=== PATIENT | female | born 1950 | race Caucasian/White ===

== ENCOUNTER 2016-04-14 10:19 | Observation (INO) | payer OTHER, MEDICAID ==
--- NOTE | 2016-04-14 10:21 | EDPHY ---
H & P Time Seen by Provider: 04/14/16 10:19 HPI/ROS: CHIEF COMPLAINT: Found down HISTORY OF PRESENT ILLNESS: The patient is a 66 year old woman, arriving by EMS as a limited trauma plus activation, presenting after being found down in a snow bank. The patient was found at 0900 by a audio visual technician in a snow bank. When found, she was only oriented to name. She was appropriately dressed. While en route with EMS, she became more oriented, now GCS 15 by EMS report. The patient states she was walking her dogs this morning, left the house at approximately 0815. She denies chest pain, difficulty breathing, or headache this morning prior to leaving the house. EMS notes an abrasion above the left eye brow and controlled bleeding from the mouth on their arrival. The patient complains of headache, neck pain, and nausea on the arrival to the ED. She denies chest pain, shortness of breath, back pain, or abdominal pain. She appears to be incontinent of urine. The patient has no history of seizure. She states she drinks alcohol regularly, but not daily. She did not drink any alcohol today. She reports feeling dizzy before the event. She reports feeling dizzy while in the emergency department. REVIEW OF SYSTEMS: Aside from elements discussed in the HPI, a comprehensive 10-point review of systems was reviewed and is negative. PAST MEDICAL HISTORY: Denies SOCIAL HISTORY: Drinks alcohol on a regular basis but not daily. She denies drinking alcohol today or last night.. VITAL SIGNS: Reviewed by me; see NN. GENERAL: Pleasant, elderly female. Well-developed, well-nourished, in no acute distress. HEENT: Head: Atraumatic, normocephalic. Face: Abrasion over the left eye, left cheek, and the end of her nose. PERRL, EOMI, no nystagmus. Oropharynx: Normal occlusion. Bite travis on the right side of tongue. Dried blood around the lips Neck: Midline cervical tenderness over C7, immobilized in cervical collar. CHEST: Nontender, no subcutaneous air palpable. LUNGS: Clear to auscultation bilaterally, breath sounds are equal. CARDIAC: Regular rate and rhythm, no rubs, murmurs or gallops. ABDOMEN: Soft, nontender, nondistended, bowel sounds normal. BACK: No CVA tenderness, no spinal tenderness. : Appears incontinent of urine. EXTREMITIES: No trauma noted, normal range of motion. PULSES: 2+ and equal throughout. NEURO: Alert and oriented x3, cranial nerves are intact throughout, normal motor , normal sensation. SKIN: Warm and dry, no rash. Portions of this note were transcribed by a certified medical technician assistant. I personally performed a history, physical exam, medical decision making, and confirmed accuracy of information the transcribed note. Source: Patient, EMS Exam Limitations: No limitations Constitutional: Initial Vital Signs Temperature (C) 36.6 C 04/14/16 10:34 Heart Rate 76 04/14/16 10:34 Respiratory Rate 18 04/14/16 10:34 Blood Pressure 136/74 H 04/14/16 10:34 O2 Sat (%) 97 04/14/16 10:34 O2 Delivery Mode Room Air Allergies/Adverse Reactions: No Known Allergies Allergy (Unverified 04/14/16 10:34) Home Medications: Medication Instructions Recorded Acetaminophen [Tylenol ES 500 mg 500 - 1,000 mg PO Q6HRS PRN #0 tab 04/15/16 (*)] Aspirin EC [Aspirin EC 81 mg (*)] 81 mg PO DAILY #30 tab 04/15/16 Medical Decision Making - Diagnostics EKG Interpretation: The 12 lead EKG was interpreted by myself. sinus rhythm, rate 67 bpm, short NV interval. See hard copy and/or "tracemaster" electronic copy for interpretation. Imaging: Study: CT of the Head w/o IV contrast Indication: Trauma Results: The results of the study are: No acute findings. The study was read by the radiologist, Dr. Caro. I viewed the images myself on the PACS system. Study: CT of the C-spine w/o IV contrast Indication: Trauma Results: The results of the study are: No acute findings. The study was read by the radiologist, Dr. Caro. I viewed the images myself on the PACS system. ED Course/Re-evaluation: 1019: The patient arrived by EMS as a limited trauma plus activation. I met the patient on arrival and obtained report from EMS. The patient was found down, initially oriented to self only, with tongue bite and appearing incontinent on exam. The patient is alert and oriented x3 on arrival. History concerning for possible seizure. Head and c-spine CT ordered. 1125: C-spine CT is negative for acute findings. C-spine cleared by myself and C -collar removed. Patient continues to recall dizziness prior to being found down. EKG, CXR, and troponin ordered. Short NV interval seen on EKG. Curbside consult with Dr. Alcala, he is not concerned about shortened NV interval. 1300: Patient's bicarbonate of 14 is also consistent with seizure. Decided to admit the patient for new-onset seizure, ongoing dizziness, and brain MRI. 1312: I consulted with Dr. Reeves, neurologist, about the patient's condition. He will consult on the patient. 1345: I consulted with hospitalist service. Dr. Mariscal accepts admission. Also consulted with Dr. Ottoniel Carver, trauma surgery. He will evaluate the patient as the patient presented as a limited trauma activation. Differential Diagnosis: Differential diagnosis of the patient's presenting complaint was considered including but not limited to electrolyte abnormality, syncope, cardiac syncope, stroke, alcohol withdrawal, head injury, meningitis, encephalitis, and breakthrough seizure. Consult/Admit Bed Type: Dr Mariscal, [facility] - Data Points Laboratory Results: Laboratory Results 04/14/16 10:20 04/14/16 10:20 Medications Given: Discontinued Medications Acetaminophen (Tylenol) 1,000 mg PO EDNOW ONE Stop: 04/14/16 12:03 Last Admin: 04/14/16 13:01 Dose: Not Given Aspirin (Aspirin) 81 mg PO DAILY ANTOINE Stop: 10/12/16 08:59 Last Admin: 04/15/16 08:14 Dose: 81 mg Enoxaparin Sodium (Lovenox) 40 mg SC DAILY COUNTS INCLUDE 234 BEDS AT THE [facility] Stop: 10/11/16 15:29 Last Admin: 04/15/16 08:14 Dose: 40 mg Hydromorphone HCl (Dilaudid) 0.5 mg IVP EDNOW ONE Stop: 04/14/16 12:42 Last Admin: 04/14/16 12:54 Dose: 0.5 mg Potassium Chloride/Sodium Chloride (Ns W/ 20 Kcl/L) 1,000 mls @ 100 mls/hr IV CONT ANTOINE Stop: 10/11/16 14:59 Last Admin: 04/14/16 21:23 Dose: 1,000 mls Ibuprofen (Motrin) 400 mg PO Q4HRS PRN PRN Reason: Pain, Inflammatory Stop: 10/11/16 14:59 Last Admin: 04/14/16 16:12 Dose: 400 mg Departure - Departure Disposition: [facility] Acute Clinical Impression: Seizure, Dizziness Condition: Fair Report Scribed for: Denisse Oleary Report Scribed by: Nohemi Funez Date of Report: 04/14/16 Time of Report: 10:30
[2016-04-14 10:42] LABS: % IMMATURE GRANULYOCYTES 0.8 % (0.0-1.1); ABSOLUTE IMMATURE GRANULOCYTES 0.05 10^3/uL (0.00-0.10); ADD DIFF? NO; ADD MORPH? NO; ADD SCAN? NO; ATYPICAL LYMPHOCYTE FLAG 10 (0-99); FRAGMENT RBC FLAG 0 (0-99); HEMATOCRIT 47.5 % (38.0-47.0); HEMOGLOBIN 16.2 g/dL (12.6-16.3); LEFT SHIFT FLG 0 (0-99); LIPEMIA HEMOLYSIS FLAG 90 (0-99); MEAN CELL HEMOGLOBIN CONCENTR. 34.1 g/dL (32.4-36.7); MEAN CELL VOLUME 96.7 fL (81.5-99.8); MEAN PLATELET VOLUME 11.2 fL (8.7-11.7); PLATELET CLUMPS FLAG 0 (0-99); PLATELET COUNT 218 10^3/uL (150-400); RED BLOOD CELL COUNT 4.91 10^6/uL (4.18-5.33); RED CELL DISTRIBUTION WIDTH 11.8 % (11.5-15.2)
--- NOTE | 2016-04-14 11:06 | CT ---
CT Cervical Spine. 10:41 a.m. Indication: Trauma. Neck pain. Comparison: None. Technique: 1.25 mm thick axial collimated slices were obtained from the occiput through superior endp late of T2. The data were reconstructed in the sagittal and coronal planes. Both soft tissue and bone windows were reviewed. Dose reduction techniques were utilized. Findings: The occiput through T2 is anatomically aligned. No acute fracture or soft tissue swelling. Moderate degenerative disk disease is present at C5-C6 and C6-C7. 3 mm anterolisthesis of C4 on C5 is due to moderate bilateral facet arthropathy. The lung apices are clear. Impression: 1. No acute fracture or soft tissue swelling. 2. Moderate degenerative disk disease in the mid and lower cervical spine. 3. If the patient has persistent pain or neurologic deficits, consider cervical spine MRI. Comment: Case was discussed with Dr. Oleary at 11 a.m. April 14, 2016.
--- NOTE | 2016-04-14 11:07 | CT ---
CT Head (Without Contrast) 10:41 a.m. Indication: Limited plus trauma. Facial abrasions. Technique: Standard noncontrast head CT protocol utilizing 5 mm thick collimated slices and field of view of 23 cm. Dose reduction techniques were utilized. Findings: No intracranial hemorrhage, contusion, swelling, or extraaxial fluid collection. The ventri cles are normal caliber and midline. The chaudhari and white matter has normal attenuation. No acute fract ure. Minimal soft tissue swelling overlies the left infraorbital rim. A punctate radiodensity is pres ent on the skin in the region of the soft tissue swelling. Impression: 1. No acute fracture or evidence of acute intracranial injury. 2. Minimal left periorbital soft tissue swelling. Comment: Case was discussed Dr. Oleary at 11 a.m. April 14, 2016.
[2016-04-14 11:43] LABS: ANION GAP 22 mEq/L (8-16); CALCIUM 9.7 mg/dL (8.5-10.4); CARBON DIOXIDE 14 mEq/l (22-31); CHLORIDE 106 mEq/L (97-110); ETHANOL SERUM < 10 mg/dL (0-10); GLOMERULAR FILTRATION RATE 56; GLUCOSE 99 mg/dL (70-100); POTASSIUM 3.7 mEq/L (3.5-5.2); SODIUM 142 mEq/L (134-144)
[2016-04-14 11:55] LABS: TROPONIN I < 0.012 ng/mL (0-0.034)
--- NOTE | 2016-04-14 11:57 | CPEKG ---
Heart Rate: 67 RR Interval: 896 P-R Interval: 92 QRSD Interval: 88 QT Interval: 404 QTC Interval: 427 P Dillon: 71 QRS Dillon: 83 T Wave Dillon: 71 EKG Severity - BORDERLINE ECG - EKG Impression: SINUS RHYTHM EKG Impression: SHORT AR INTERVAL, ACCELERATED AV CONDUCTION EKG Impression: BORDERLINE RIGHT AXIS DEVIATION Electronically Signed By: Denisse Oleary 14-Apr-2016 22:33:10
[2016-04-14] MEDS ORDERED: ACETAMINOPHEN 500 MG TAB PO ONE (12:02)
--- NOTE | 2016-04-14 12:17 | DX ---
PA and Lateral Chest April 14, 2016 Indication: Scapular pain on the left.. Recent fall. Comparison: CT cervical spine performed same day. Findings: The lungs are well aerated and clear. No pneumothorax, effusion, or atelectasis. Heart size is normal. No discernible rib or scapular fracture. Thoracic spine has minimal levocurvature and dem ineralization. No discernible compression deformity. Impression: Negative. Clear lungs. No acute process.
[2016-04-14 12:21] LABS: COLOR YELLOW; LEUKOCYTE ESTERASE,URINE NEGATIVE (NEGATIVE); NITRITE,URINE NEGATIVE (NEGATIVE)
[2016-04-14 12:23] LABS: MUCUS TRACE /lpf (NONE-1+)
[2016-04-14] MEDS ORDERED: HYDROmorphONE/DILAUDID 1 MG/ML SYR IVP ONE (12:41)
--- NOTE | 2016-04-14 14:41 | MR ---
MRI of the Brain (Without Contrast) Indication: Seizure. Technique: Sagittal and axial T1, axial fast inversion-recovery, fast T2-weighted, and diffusion-da ghted axial images were obtained without contrast. Comparison: CT head performed earlier today. Findings: An 8 mm round focus of blooming artifact in the right cerebellar peduncle on the susceptib ility-weighted sequence corresponds to a round hyperintense 6 mm lesion with a hypointense hemosideri n ring on the T2-weighted sequence. The features are suggestive of a small benign cavernoma. No intracranial hemorrhage, mass, or subdural hematoma. The ventricular system is normal caliber and midline. No other foci of hemosiderin deposition. FLAIR-weighted imaging reveals minimal scattered hy perintense white matter foci principally in the subcortical distribution of the frontal and parietal lobes. The pituitary gland is normal size. The cervicooccipital junction is normal. The paranasal sin uses are clear. The sagittal sinus and carotid basivertebral arteries have normal black flow void. Ma stoid air cells are clear. Impression: 1. Small cavernoma right cerebellar peduncle. 2. No acute intracranial process. Specifically, no acute hemorrhage or evidence of ischemia. No subdu ral hematoma. 3. Minimal atrophy and minimal nonspecific white matter disease. Comment: Results were discussed with Denisse Oleary at 2:35 p.m. April 14, 2016.
[2016-04-14] MEDS ORDERED: NS W/ 20 KCl/L 1,000 ML IV SCH (15:00)
[2016-04-14] MEDS ORDERED: IBUPROFEN 200 MG TAB PO PRN (15:00)
[2016-04-14] MEDS ORDERED: ONDANSETRON 4 MG/2 ML VIAL IVP PRN (15:00)
[2016-04-14] MEDS ORDERED: ACETAMINOPHEN 500 MG TAB PO PRN (15:00)
[2016-04-14] MEDS ORDERED: diphenhydrAMINE 25 MG CAP PO PRN (15:00)
[2016-04-14] MEDS ORDERED: ONDANSETRON DISINTEGRATING 4 MG TAB PO PRN (15:00)
[2016-04-14] MEDS ORDERED: oxyCODONE IR 5 MG TAB PO PRN (15:00)
--- NOTE | 2016-04-14 15:07 | PDGENHP ---
History and Physical - Chief Complaint Acute loss of consciousness - History of Present Illness PCP: [facility] HPI: 66-year-old female presenting after she was acutely found down characterized as loss of consciousness with associated precipitating dizziness and disorientation with onset of symptoms around 8:15 a.m. on the day of presentation. Symptom duration was approximately 45 minutes and the patient was found down in a snow pile by emergency responders at 9:00 a.m.. At the time of their arrival, they reported that the patient was disoriented, had an abrasion located over her left eye and mouth, and was incontinent of urine. The patient's orientation improved en route to hospital and upon arrival to [facility] the patient is experiencing headache, gait unsteadiness , generalized fatigue, but is otherwise oriented. She reports that over the past year she has intermittently experienced episodes of what she characterizes visual changes and slight dizziness which are self limited and do not appear to be provoked by any particular stimuli. She denies experiencing chest pain palpitations or headaches during these symptoms. She reports that she had otherwise been feeling well prior to her morning of presentation and had not recently had any nausea vomiting diarrhea or poor oral intake of solids or liquids. She reports that she ate breakfast on the morning of presentation, and that her exercise tolerance over the past week has been normal. History Information - Allergies/Home Medication List Allergies/Adverse Reactions: No Known Allergies Allergy (Unverified 04/14/16 10:34) Home Medications: NK [No Known Home Meds] 04/14/16 [Last Taken Unknown] I have personally reviewed and updated: family history, medical history, social history, surgical history - Past Medical History Additional medical history: Hip dislocation as a child - Surgical History Additional surgical history: Tonsillectomy - Family History Additional family history: Mother with brain aneurysm in her 50s, CVAs in her 70s - Social History Smoking Status: Never smoked Alcohol Use: Other (Patient drinks approximately 5 evenings per week, approximately 2-3 beverages, has never experienced acute alcohol withdrawal) Drug Use: Marijuana (Nightly) Additional social history: Physically active person, engage in yoga and cross- country skiing, no recent reduction in exercise tolerance Review of Systems ROS: 10pt was reviewed & negative except for what was stated in HPI & below Constitutional: Reports: weakness Neurological: Reports: headache, other (Gait unsteadiness) Physical Exam Temp Pulse Resp BP Pulse Ox 36.8 C 65 14 122/75 H 92 04/14/16 14:28 04/14/16 14:28 04/14/16 14:28 04/14/16 14:28 04/14/16 14:28 Constitutional: no apparent distress, appears nourished, not in pain Eyes: PERRL, anicteric sclera, EOMI Ears, Nose, Mouth, Throat: moist mucous membranes, hearing normal, ears appear normal, no oral mucosal ulcers Cardiovascular: regular rate and rhythym, no murmur, rub, or gallop, No edema Respiratory: no respiratory distress, no rales or rhonchi, clear to auscultation Gastrointestinal: normoactive bowel sounds, soft, non-tender abdomen, no palpable masses Skin: warm, normal color, no rashes or abrasions, no fluctuance, no induration, No mottled Musculoskeletal: other (Tenderness to palpation over the left inferior angle of the scapula as well as left lateral posterior ribs, tenderness to palpation over the right superior aspect of the trapezius muscle without any clavicular involvement) Neurologic: AAOx3, sensation intact bilaterally, CN II-XII Intact, No weakness ( Motor strength 5/5 bilateral upper and lower extremities), No asterixes, No facial droop Psychiatric: interacting appropriately, not anxious, not encephalopathic, thought process linear Lab Data & Imaging Review 04/14/16 10:20 04/14/16 10:20 WBC 6.58 10^3/uL (3.80-9.50) 04/14/16 10:20 RBC 4.91 10^6/uL (4.18-5.33) 04/14/16 10:20 Hgb 16.2 g/dL (12.6-16.3) 04/14/16 10:20 Hct 47.5 % (38.0-47.0) H 04/14/16 10:20 MCV 96.7 fL (81.5-99.8) 04/14/16 10:20 MCH 33.0 pg (27.9-34.1) 04/14/16 10:20 MCHC 34.1 g/dL (32.4-36.7) 04/14/16 10:20 RDW 11.8 % (11.5-15.2) 04/14/16 10:20 Plt Count 218 10^3/uL (150-400) 04/14/16 10:20 MPV 11.2 fL (8.7-11.7) 04/14/16 10:20 Neut % (Auto) 46.9 % (39.3-74.2) 04/14/16 10:20 Lymph % (Auto) 40.0 % (15.0-45.0) 04/14/16 10:20 [place] % (Auto) 9.9 % (4.5-13.0) 04/14/16 10:20 Eos % (Auto) 1.5 % (0.6-7.6) 04/14/16 10:20 Baso % (Auto) 0.9 % (0.3-1.7) 04/14/16 10:20 Nucleat RBC Rel Count 0.0 % (0.0-0.2) 04/14/16 10:20 Absolute Neuts (auto) 3.09 10^3/uL (1.70-6.50) 04/14/16 10:20 Absolute Lymphs (auto) 2.63 10^3/uL (1.00-3.00) 04/14/16 10:20 Absolute Monos (auto) 0.65 10^3/uL (0.30-0.80) 04/14/16 10:20 Absolute Eos (auto) 0.10 10^3/uL (0.03-0.40) 04/14/16 10:20 Absolute Basos (auto) 0.06 10^3/uL (0.02-0.10) 04/14/16 10:20 Absolute Nucleated RBC 0.00 10^3/uL (0-0.01) 04/14/16 10:20 Immature Gran % 0.8 % (0.0-1.1) 04/14/16 10:20 Immature Gran # 0.05 10^3/uL (0.00-0.10) 04/14/16 10:20 Sodium 142 mEq/L (134-144) 04/14/16 10:20 Potassium 3.7 mEq/L (3.5-5.2) 04/14/16 10:20 Chloride 106 mEq/L (97-110) 04/14/16 10:20 Carbon Dioxide 14 mEq/l (22-31) L 04/14/16 10:20 Anion Gap 22 mEq/L (8-16) 04/14/16 10:20 BUN 11 mg/dL (7-23) 04/14/16 10:20 Creatinine 1.0 mg/dL (0.6-1.0) 04/14/16 10:20 Estimated GFR 56 04/14/16 10:20 Glucose 99 mg/dL (70-100) 04/14/16 10:20 Calcium 9.7 mg/dL (8.5-10.4) 04/14/16 10:20 Troponin I < 0.012 ng/mL (0-0.034) 04/14/16 10:20 Urine Color YELLOW 04/14/16 11:58 Urine Appearance CLEAR 04/14/16 11:58 Urine pH 5.0 (5.0-7.5) 04/14/16 11:58 Ur Specific [place] 1.011 (1.002-1.030) 04/14/16 11:58 Urine Protein 1+ (NEGATIVE) H 04/14/16 11:58 Urine Ketones TRACE (NEGATIVE) H 04/14/16 11:58 Urine Blood NEGATIVE (NEGATIVE) 04/14/16 11:58 Urine Nitrate NEGATIVE (NEGATIVE) 04/14/16 11:58 Urine Bilirubin NEGATIVE (NEGATIVE) 04/14/16 11:58 Urine Urobilinogen NEGATIVE EU (0.2-1.0) 04/14/16 11:58 Ur Leukocyte Esterase NEGATIVE (NEGATIVE) 04/14/16 11:58 Urine RBC 1-3 /hpf (0-3) 04/14/16 11:58 Urine WBC 1-3 /hpf (0-3) 04/14/16 11:58 Ur Epithelial Cells NONE SEEN /lpf (NONE-1+) 04/14/16 11:58 Urine Mucus TRACE /lpf (NONE-1+) 04/14/16 11:58 Urine Glucose NEGATIVE (NEGATIVE) 04/14/16 11:58 Ethyl Alcohol < 10 mg/dL (0-10) 04/14/16 10:20 Visualized and Interpreted Chest x-ray results: Yes Chest X-Ray results: no infiltrate Visualized and Interpreted EKG results: Yes EKG Interpretation: Positive for: other (Normal sinus mechanism) Assessment & Plan Assessment: 66-year-old female presents with acute loss of consciousness concerning for seizure and possible TIA Plan: 1. Loss of consciousness. Acute, new problem this provider, further workup indicated. Suspect that patient experienced a seizure with possible precipitating TIA, warrants further investigation given her description of preceding neurologic symptoms -brain MRI demonstrating no evidence of CVA -get anterior and posterior circulation ultrasounds, echocardiogram with bubble , telemetry, outpatient loop recorder if none of these are revealing 2. Seizure. Acute, new problem this provider, further workup indicated. Unprovoked, evidenced by loss of consciousness, urinary incontinence, low serum bicarbonate level, tongue laceration -unwitnessed -reviewed outside records including 01/26/2013 serum bicarbonate level of 28 at that time, and currently 14 -repeat serum bicarb level in a.m. -perform TIA workup as outlined above -get Neurology consultation, appreciated -patient has yet to receive any antiepileptic medications, will defer to Dr. Reeves -will require outpatient neurology follow-up 3. Suspected concussion. Evidenced by a headache, ataxia, generalized weakness and discomfort -Discussed with Dr. Reeves he will follow up with patient in the outpatient setting insurance coverage permitting -symptomatic management provided Diet. Regular Prophylaxis. Moderate risk patient provide lovenox 40 Code. Full Disposition. Anticipated discharge is 04/15/2016, pending further workup and treatment as indicated above.
--- NOTE | 2016-04-14 16:08 | GCON ---
[f rep st] CONSULTATION NEUROLOGY CONSULTATION DATE OF CONSULTATION: 04/14/2016 REFERRING PHYSICIAN: Mc Mariscal MD CHIEF COMPLAINT: Seizures. HISTORY OF PRESENT ILLNESS: The patient is a very pleasant 66-year-old lady without any epilepsy risk factors. She is a fairly healthy and active lady without any chronic medical problems. She is a social drinker and has perhaps 2 glasses of wine 5 nights per week. She also uses cannabis at night sometimes to help her sleep. The patient recently has been having some new symptoms of seeing "shadows move in her visual field and feeling a little bit dizzy," but no focal sensory motor symptoms, field cuts language disturbance, or dysarthria. The patient went for a 1-mile walk with her dogs this morning as she usually does near her home, when she again started feeling dizzy and suddenly felt that the place she was at (which is very familiar to her) suddenly seemed unfamiliar, and then she abruptly lost consciousness. This is the last thing she remembers. She was found down by a volunteer claim rep in a snow bank with tongue biting, urinary incontinence, and was fairly confused. She was brought to the Emergency Department and had a low bicarb. She had a head CT which was unremarkable, a cervical spine CT which showed no acute fracture or soft tissue swelling. She had a brain MRI which showed no epileptogenic lesions. She had an incidental finding of a small cavernoma on the right cerebellar peduncle. She is now clearing and lucid with some headache and feeling dizzy. PAST MEDICAL HISTORY: None. HOME MEDICATIONS: None. ALLERGIES: No known drug allergies. SOCIAL HISTORY: A social drinker. 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 REVIEW OF SYSTEMS: A 10-point review of systems was done and only pertinent to the HPI. PHYSICAL EXAMINATION: VITAL SIGNS: Blood pressure 122/75, temperature 36.8, O2 saturations 92%, heart rate 65 and regular. GENERAL: In no acute distress. A very pleasant lady. NEUROLOGIC: Higher mental function: She is awake and alert and has no aphasia. She answers commands 5/5, names 5/5, repeats 5/5. Cranial nerve exam is normal II through VII, XI, and XII. No dysarthria. Motor exam: Normal strength, tone, and deep tendon reflexes. Sensory exam: Normal to light touch throughout. Coordination: No ataxia in her limbs. IMPRESSION AND PLAN: #1 Single seizure The patient's clinical history is most consistent with a first, unprovoked seizure. After extensive interview, I could not find any provocative factors such as medications prescribed or unprescribed that would provoke a seizure or any other provocateurs. She does not have epilepsy risk factors. The patient had a fairly significant lateral tongue biting on exam, urinary incontinence, and post-event confusion, consistent with a generalized seizure. She will have a vascular evaluation based on her background symptoms of dizziness that has been going on for some weeks or months. I recommend the patient be on 90 days of driving restrictions and seizure precautions from the day of the seizure, April 14, 2016. She is agreeable. We discussed the risk of recurrence based on the data we have currently being somewhere between 30 and 40% in the next 2-5 years of a 2nd seizure. We also discussed the [place] [employer] practice parameters regarding a first unprovoked seizure that treatment is generally optional. She declined treatment at this time. I think that is reasonable. She needs to have an outpatient EEG (to help further risk stratify the probability of a 2nd seizure) and a Neurology followup afterwards. I have offered to follow her up as an outpatient. The patient has [employer] and will need to check if she will be able to follow up with our practice. I would certainly be happy to see her if that is possible. I have discussed the plan with the patient and Dr. Mariscal at length. She will likely discharge tomorrow after monitoring and her vascular evaluation. Dr. Mariscal will contact me if there are any questions about her other testing results. Otherwise, we will sign off and follow up as needed. Thank you for this consultation. /[id number]/MODL [id number]
[2016-04-14] MEDS: ENOXAPARIN 40 MG/0.4 ML SYR SC SCH (16:12)
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
--- NOTE | 2016-04-14 19:29 | US ---
Bilateral Duplex Carotid Sonography at 1842 hours Clinical Indications: Fall. Trauma. Dizziness. Seizure. Technique: The cervical portions of the carotid and vertebral arteries were imaged and interrogated by duplex ultrasound. Findings: Right Carotid: The common carotid artery, bifurcation, and origin of the internal and external carot id artery are well imaged. Doppler velocity estimates in cm/sec are as follows; ICA 104, CCA 104, an d ECA 71. ICA to CCA ratio is 1. Minimal atherosclerotic plaque at the carotid bulb. Waveforms are normal. Left Carotid: The common carotid artery, bifurcation, and origin of the internal and external caroti d artery are well imaged. Doppler velocity estimates in cm/sec are as follow: ICA 91, CCA 98, and EC A 92. ICA to CCA ratio is 1.1. Minimal atherosclerotic plaque at the left carotid bulb. Waveforms ar e normal. Vertebral Arteries: Antegrade flow is shown by pulsed Doppler of each vertebral artery. Impression: No evidence of flow-limiting carotid stenosis. Measurement of carotid stenosis is based on velocity parameters that correlate the residual internal carotid diameter with [place] Symptomatic Carotid Endarterectomy Trial (NASCET) based on steno sis levels.
[2016-04-14 20:05] VITALS: RESP 16
[2016-04-15 03:29] VITALS: TEMP 98
[2016-04-15 05:51] LABS: % IMMATURE GRANULYOCYTES 0.3 % (0.0-1.1); ABSOLUTE IMMATURE GRANULOCYTES 0.02 10^3/uL (0.00-0.10); ADD DIFF? NO; ADD MORPH? NO; ADD SCAN? NO; ATYPICAL LYMPHOCYTE FLAG 10 (0-99); FRAGMENT RBC FLAG 0 (0-99); HEMATOCRIT 38.7 % (38.0-47.0); HEMOGLOBIN 13.3 g/dL (12.6-16.3); LEFT SHIFT FLG 0 (0-99); LIPEMIA HEMOLYSIS FLAG 90 (0-99); MEAN CELL HEMOGLOBIN 32.8 pg (27.9-34.1); MEAN CELL HEMOGLOBIN CONCENTR. 34.4 g/dL (32.4-36.7); MEAN CELL VOLUME 95.6 fL (81.5-99.8); PLATELET CLUMPS FLAG 0 (0-99); PLATELET COUNT 154 10^3/uL (150-400); RED BLOOD CELL COUNT 4.05 10^6/uL (4.18-5.33); RED CELL DISTRIBUTION WIDTH 11.8 % (11.5-15.2)
[2016-04-15 06:23] LABS: ALANINE AMINOTRANSFERASE 27 IU/L (9-52); ALBUMIN 3.2 g/dL (3.5-5.0); ALKALINE PHOSPHATASE 65 IU/L (38-126); ANION GAP 5 mEq/L (8-16); ASPARTATE AMINOTRANSFERASE 21 IU/L (14-46); BILIRUBIN,TOTAL 0.5 mg/dL (0.1-1.4); CALCIUM 8.6 mg/dL (8.5-10.4); CARBON DIOXIDE 22 mEq/l (22-31); CHLORIDE 115 mEq/L (97-110); CREATININE 0.7 mg/dL (0.6-1.0); GLOMERULAR FILTRATION RATE > 60; GLUCOSE 86 mg/dL (70-100); POTASSIUM 4.3 mEq/L (3.5-5.2); SODIUM 142 mEq/L (134-144); TOTAL PROTEIN 5.7 g/dL (6.3-8.2)
[2016-04-15 07:45] VITALS: BP 110/63; PULSE 65; O2SAT 96
--- NOTE | 2016-04-15 07:58 | SOAPPROG ---
SOAP Progress Note Assessment/Plan: Assessment: Plan: Subjective: vss, af recent new seizure. denies any focal pain lungs clear, heart nml s1s2 no m access: no traumatic injuries. care per [facility] service- trauma will sign off. Objective: Vital Signs Temp Pulse Resp BP Pulse Ox 36.6 C 65 16 110/63 96 04/15/16 03:28 04/15/16 07:44 04/15/16 07:44 04/15/16 07:44 04/15/16 07:44 Laboratory Results 04/15/16 05:08 04/15/16 05:08 04/14/16 04/15/16 04/16/16 05:59 05:59 05:59 Intake Total 1500 Output Total 700 Balance 800 ICD10 Worksheet Patient Problems: Problems Problem Status Diagnosed Dizziness Acute Seizure Acute
[2016-04-15] MEDS: ENOXAPARIN 40 MG/0.4 ML SYR SC SCH (08:14)
[2016-04-15] MEDS ORDERED: ASPIRIN 81 MG CHEWABLE TAB PO SCH (09:00)
--- NOTE | 2016-04-15 12:10 | PDDCSUM ---
Discharge Summary Discharge Summary: DISCHARGE SUMMARY FOLLOW-UP ITEMS: Get outpatient EEG, get outpatient linq/loop recorder DATE OF ADMISSION: 04/14/2016 DATE OF DISCHARGE: 04/15/2016 DISCHARGE DIAGNOSES: 1. Acute, unprovoked seizure 2. Possible TIA 3. Possible concussion CONSULTATIONS: Neurology by Dr. Reeves, trauma PROCEDURES / IMAGING: MRI demonstrating no evidence of CVA, carotid ultrasounds and vertebral ultrasounds demonstrating no evidence of stenosis, EKG demonstrating no evidence of AFib CHIEF COMPLAINT: Found down SUBJECTIVE: Patient is feeling well at time of discharge, her headache has resolved, she is ambulating successfully PHYSICAL EXAM ON DISCHARGE: Systolic blood pressure is 1/100, heart rate 60, afebrile overnight, satting well on room air, moving all 4 extremities, alert awake oriented x3, has good facial symmetry LABS ON DISCHARGE: TSH 1, creatinine 0.7, potassium 4.3, white blood cell count 5900, hemoglobin 13 HOSPITAL COURSE BY PROBLEM: 1. Acute unprovoked seizure. Patient presented with a 1st episode unwitnessed seizure evidenced by tongue laceration, loss of consciousness, urinary incontinence, low serum bicarb level. She was seen in consultation by Dr. Reeves, and he presented the options to the patient regarding antiepileptic therapy. She decided not to initiate antiepileptic therapy at this time but will follow up with Neurology in outpatient setting and undergo an EEG. This seems like a reasonable approach, and there was no clear, provoking cause identified. Her risk of recurrence is between 30 and 40% and she understands this. 2. Possible TIA. It is unclear whether a TIA precipitated patient's seizure event, but the possibility should be considered given her symptoms of visual changes occurring over the past 6 months. MRI demonstrated no evidence of CVA, ultrasound demonstrated no evidence of vertebrobasilar or carotid stenosis, telemetry demonstrate no evidence of tachyarrhythmia. I recommended that she initiated aspirin 81 mg daily for preventive measures and that she have an outpatient loop recorder placed to rule out arrhythmia. 3. Possible concussion. The patient experienced headache, ataxia, and dizziness after her event, and it is possible that she experienced a concussion after striking her head on the ground. Her head CT demonstrates no evidence of intracranial hemorrhage, and her symptoms have improved. She will follow up with Neurology in the outpatient setting. DISCHARGE MEDICATIONS: Please see official discharge medication reconciliation sheet in chart , aspirin 81 mg daily DISCHARGE INSTRUCTIONS: Please follow up with outpatient Neurology, have an outpatient EEG, have an outpatient loop recorder.
--- NOTE | 2016-04-15 15:28 | ECHO ---
[id number] + + [address] : : [place] [address] : : [phone] + + Adult Echocardiographic Report + ----+ :Name: STEVE CASTILLO JStudy Date: 04/14/2016 03:38 PM : : Hospital Admission Number: [id number] Location: 357: :: 1950 Gender: Female Height: 66 in : :Age: 66 yrs Race: WH Weight: 125 lb : :Reason For Study: eval for TIA : : BSA: 1.6 meters2 : :History: No previous : + ----+ MMode/2D Measurements & Calculations IVSd: 1.0 cm RVDd: 2.4 cm FS: 37.7 % LVOT diam: 1.8 cm LVPWd: 0.97 cm LVIDd: 3.1 cm EDV(Teich): LVOT area: LVIDs: 2.0 cm 39.4 ml 2.4 cm2 ESV(Teich): 12.1 ml EF(Teich): 69.3 % LVLd ap4: 6.7 cm SV(MOD-sp4): EDV(MOD-sp4): 31.0 ml 50.0 ml LVLs ap4: 5.7 cm ESV(MOD-sp4): 19.0 ml EF(MOD-sp4): 62.0 % Normal Measurement Values: + + :LVIDd (3.5-5.7cm) IVSd (0.6-1.1cm) LVPWd (0.6-1.1cm) Aortic Root (2.0-3.7cm)Left Atrium (1.5-4.0cm): :LV Vol(d) (76-115ml) LV Vol(s) (29-48ml) Ejec Fraction (50-65%)PV Juwan (0.6- 1.2m/s) TV Juwan (0.4-1.0m/s) : :MV E Juwan (0.8-1.0m/s)MV A Juwan (0.3-1.0m/s)LVOT Juwan (0.7-1.2m/s) Asc Ao Juwan ( 0.9-1.8m/s) : + + Doppler Measurements & Calculations MV E max juwan: MV V2 max: Ao mean PG: LV V1 mean P.3 cm/sec 85.1 cm/sec 3.5 mmHg 2.8 mmHg MV A max juwan: MV max PG: Ao V2 mean: LV V1 mean: 54.3 cm/sec 2.9 mmHg 89.9 cm/sec 76.9 cm/sec MV E/A: 1.7 MV V2 mean: Ao V2 VTI: 27.8 cm LV V1 VTI: 27.6 cm MV dec time: 48.3 cm/sec LAKISHA(I,D): 2.4 cm2 0.18 sec MV mean P.1 mmHg MV V2 VTI: 25.7 cm MVA(VTI): 2.6 cm2 SV(LVOT): 67.5 ml PA V2 max: TR max juwan: 89.6 cm/sec 237.5 cm/sec PA max PG: TR max P.2 mmHg 22.6 mmHg Left Ventricle The left ventricle is normal in size and function. There is normal left ventricular wall thickness. Ejection Fraction = 65-70%. Right Ventricle The right ventricle is normal in size and function. Atria The left atrial size is normal. Right atrial size is normal. Mitral Valve The mitral valve is normal in structure and function. There is no mitral valve stenosis. There is trace to mild mitral regurgitation. Tricuspid Valve The tricuspid valve is normal in structure and function. There is no tricuspid stenosis. There is trace to mild tricuspid regurgitation. Right ventricular systolic pressure is normal. Aortic Valve The aortic valve is not well visualized. There is no aortic stenosis. Mild aortic regurgitation. Pulmonic Valve The pulmonic valve is not well visualized. There is no pulmonic valvular stenosis. There is no pulmonic valvular regurgitation. Great Vessels The aortic root is normal size. Pericardium/Pleural There is a fat pad seen. Conclusion A complete two-dimensional transthoracic echocardiogram was performed (2D, M-mode, Doppler and color flow Doppler). The study was technically difficult. The left ventricle is normal in size and function. Ejection Fraction = 65-70%. There are no wall motion abnormalities. Normal appearing cardiac valves. There is trace to mild mitral regurgitation. There is trace to mild tricuspid regurgitation. Right ventricular systolic pressure is normal. Mild aortic regurgitation. Bubble study performed, however it is inconclusive due to suboptimal images. Final Reading Physician: Stevan Robles signed on 04/15/2016 03:27 PM Ordering Physician: Mc Mariscal Performed By: Isaura King
== END 2016-04-15 12:12 | disposition home or self-care (01) ==
LOC: EDUNIT# → F3N 14:26
PROVIDERS: ADMIT Internal Medicine; ATTEND Internal Medicine
DX: R56.9 Unspecified convulsions (principal); S06.0X1A Concussion with loss of consciousness of 30 minutes or less, initial encounter; S00.212A Abrasion of left eyelid and periocular area, initial encounter; W18.39XA Other fall on same level, initial encounter; Y93.K1 Activity, walking an animal; Y92.488 Other paved roadways as the place of occurrence of the external cause; Z72.89 Other problems related to lifestyle
CPT/HCPCS: 70450; 70551; 71020; 72125; 93005; 93306; 93880; 96374; 97161; 97165; 99285; G0378; G8987; G8988; G8989; J1170; J1650; G0390; G0480